=== PATIENT | female | born 1940 | race Caucasian/White ===

== ENCOUNTER 2018-01-08 08:41 | Outpatient (CLI) | payer OTHER ==
[~2018-01-08 08:41] MED LIST: AMBIEN CR12.5 MG/BL; ATACAND4 MG; COUMADIN1 MG; LORAZEPAM2 MG; METAMUCIL; POTASSIUM99 MG; SINGULAIR10 MG; SOTALOL80 MG; TAMOXIFEN CITRA20 MG; TRAM1TAB98 PO; TRAMADOL HCL50 MG PO; TYLENOL W-CODEI1 TAB; ZANTAC300 MG
== END 2018-01-08 08:47 | disposition home or self-care (01) ==
LOC: RX STUDY 08:41
DX: K21.9 Gastro-esophageal reflux disease without esophagitis (principal); R13.13 Dysphagia, pharyngeal phase

== ENCOUNTER → 2018-04-20 | Outpatient (CLI) | payer OTHER | END | disposition home or self-care (01) | LOC: RAD 11:56 | DX: J01.01 Acute recurrent maxillary sinusitis (principal); J32.8 Other chronic sinusitis ==

== ENCOUNTER → 2018-09-11 13:03 | Outpatient (CLI) | payer OTHER | END | disposition home or self-care (01) | LOC: RAD 13:03 | DX: C50.911 Malignant neoplasm of unspecified site of right female breast (principal) ==

== ENCOUNTER 2018-12-20 11:35 | Outpatient (CLI) | payer OTHER | END 2018-12-21 06:33 | disposition home or self-care (01) | LOC: RAD 11:35 | DX: J31.0 Chronic rhinitis (principal); C50.111 Malignant neoplasm of central portion of right female breast; K21.9 Gastro-esophageal reflux disease without esophagitis; E08.8 Diabetes mellitus due to underlying condition with unspecified complications; I48.2 Chronic atrial fibrillation; I15.8 Other secondary hypertension; J45.41 Moderate persistent asthma with (acute) exacerbation; Z87.891 Personal history of nicotine dependence ==

== ENCOUNTER 2019-04-04 08:43 | Outpatient (CLI) | payer OTHER | END 2019-04-04 08:57 | disposition home or self-care (01) | LOC: TOM 08:43 | DX: R10.31 Right lower quadrant pain (principal) ==

== ENCOUNTER → 2019-06-10 | Emergency (ER) | payer OTHER ==
[~2019-06-10] VITALS: Ht 157.5 cm; Wt 61.7 kg
== END | disposition home or self-care (01) ==
LOC: ER 10:41
DX: S60.212A Contusion of left wrist, initial encounter (principal); S30.0XXA Contusion of lower back and pelvis, initial encounter; S90.31XA Contusion of right foot, initial encounter; S80.02XA Contusion of left knee, initial encounter; W18.09XA Striking against other object with subsequent fall, initial encounter; Y93.89 Activity, other specified; Y92.89 Other specified places as the place of occurrence of the external cause; Y99.8 Other external cause status

== ENCOUNTER 2020-04-21 07:10 | Emergency (ER) | payer OTHER ==
[~2020-04-21] VITALS: Ht 157.5 cm; Wt 61.2 kg
[2020-04-21] MEDS ORDERED: LASIX20 MG PO (07:18)
[2020-04-21] MEDS ORDERED: ATORVASTATIN CA40 MG PO (07:19)
[2020-04-21] MEDS ORDERED: KLOR-CON8 MEQ PO (07:19)
[2020-04-21] MEDS ORDERED: AMLODIPINE BESY10 MG PO (07:19)
[2020-04-21] MEDS ORDERED: PANTOPRAZOLE SO40 MG PO (07:19)
[2020-04-21] MEDS ORDERED: BETAPACE80 MG PO (07:19)
[2020-04-21] MEDS ORDERED: MONTELUKAST SOD10 MG PO (07:20)
[2020-04-21] MEDS ORDERED: JANUMET XR 1001 EACH PO (07:20)
[2020-04-21] MEDS ORDERED: ATACAND32 MG (07:20)
[2020-04-21] MEDS ORDERED: PRADAXA150 MG PO (07:20)
[2020-04-21] MEDS ORDERED: JARDIANCE10 MG PO (07:20)
[2020-04-21] MEDS ORDERED: GABAPENTIN100 M2 PO (07:21)
[2020-04-21] MEDS ORDERED: FLUOROMETHOLONE5 ML OP (07:21)
== END 2020-04-21 11:51 | disposition home or self-care (01) ==
LOC: ER 07:10
DX: S00.83XA Contusion of other part of head, initial encounter (principal); R42 Dizziness and giddiness; I49.8 Other specified cardiac arrhythmias; W06.XXXA Fall from bed, initial encounter; Y93.89 Activity, other specified; Y92.013 Bedroom of single-family (private) house as the place of occurrence of the external cause; Y99.8 Other external cause status

== ENCOUNTER 2020-05-03 12:01 | Outpatient (CLI) | payer OTHER ==
[~2020-05-03 12:01] MED LIST changes: +AMLODIPINE BESY10 MG PO; +ATACAND32 MG; +ATORVASTATIN CA40 MG PO; +BETAPACE80 MG PO; +FLUOROMETHOLONE5 ML OP; +GABAPENTIN100 M2 PO; +JANUMET XR 1001 EACH PO; +JARDIANCE10 MG PO; +KLOR-CON8 MEQ PO; +LASIX20 MG PO; +MONTELUKAST SOD10 MG PO; +PANTOPRAZOLE SO40 MG PO; +PRADAXA150 MG PO
== END 2020-05-03 12:02 | disposition home or self-care (01) ==
LOC: RAD 12:01
PROVIDERS: ATTEND General Practice
DX: M17.0 Bilateral primary osteoarthritis of knee (principal)

== ENCOUNTER 2020-11-07 11:57 | Outpatient (CLI) | payer OTHER | END 2020-11-07 12:06 | disposition home or self-care (01) | LOC: RAD 11:57 | PROVIDERS: ATTEND Internal Medicine Cardiovascular Disease | DX: I11.9 Hypertensive heart disease without heart failure (principal); R06.09 Other forms of dyspnea; I48.0 Paroxysmal atrial fibrillation ==

== ENCOUNTER 2020-12-10 12:14 | Outpatient (CLI) | payer OTHER | END 2020-12-10 12:21 | disposition home or self-care (01) | LOC: RAD 12:14 | DX: M53.3 Sacrococcygeal disorders, not elsewhere classified (principal) ==

== ENCOUNTER 2021-02-04 08:14 | Outpatient (CLI) | payer OTHER | END 2021-02-04 08:22 | disposition home or self-care (01) | LOC: RAD 08:14 | PROVIDERS: ATTEND Internal Medicine | DX: R07.89 Other chest pain (principal); J45.998 Other asthma ==

== ENCOUNTER 2022-05-12 09:54 | Outpatient (CLI) | payer OTHER | END 2022-05-12 14:48 | disposition home or self-care (01) | LOC: RAD 09:54 | PROVIDERS: ATTEND Orthopaedic Surgery | DX: S83.242A Other tear of medial meniscus, current injury, left knee, initial encounter (principal); Z13.83 Encounter for screening for respiratory disorder NEC ==